=== PATIENT | female | born 1935 | race Caucasian/White ===

== ENCOUNTER 2018-09-09 11:39 | Inpatient (IN) | payer OTHER ==
[2018-09-09 11:54] VITALS: BMI 29.9
--- NOTE | 2018-09-09 12:24 | PDOC ---
History of Present Illness - General Chief Complaint: Lightheaded Stated Complaint: ABD PAIN Time Seen by Provider: 09/09/18 12:01 History Source: Patient Exam Limitations: No Limitations - History of Present Illness Initial Comments: 09/09/18 12:19 Patient is an 83F with history of HTN, DM (on januvia), and a "heart problem" ( patient is on aspirin and eliquis) here today with several complaints after a fall yesterday. Patient reports tripping over her cat, falling and hitting the back of her head against the oven in her kitchen. Denies LOC. This morning, patient vomited twice and had several episodes where she "blacked out" but did not lose consciousness. Denies shortness of breath, chest pain. Denies fevers, chills, nausea, vomiting. Denies abdominal pain, dysuria. Denies headache, neck pain. Past History - Past Medical History Allergies/Adverse Reactions: Allergies Allergy/AdvReac Type Severity Reaction Status Date / Time Penicillins Allergy Verified 09/09/18 11:48 Home Medications: Ambulatory Orders Apixaban [Eliquis] 5 mg PO DAILY 09/09/18 Aspirin 81 mg PO DAILY 09/09/18 Metoprolol Succinate 25 mg PO BID 09/09/18 Sitagliptin Phosphate [Januvia] 25 mg PO DAILY 09/09/18 Cardiac Disorders: Yes COPD: No Diabetes: Yes HTN: Yes Hypercholesterolemia: Yes - Surgical History Cholecystectomy: Yes - Suicide/Smoking/Psychosocial Hx Smoking History: Never smoked Review of Systems - Review of Systems Able to Perform ROS?: Yes Comments:: 09/09/18 12:26 GENERAL/CONSTITUTIONAL: No fever or chills. No weakness. HEAD, EYES, EARS, NOSE AND THROAT: No change in vision. No sore throat. CARDIOVASCULAR: No chest pain or shortness of breath RESPIRATORY: No cough, wheezing, or hemoptysis. GASTROINTESTINAL: +nausea, +vomiting, no diarrhea or constipation. GENITOURINARY: No dysuria, frequency, or change in urination. MUSCULOSKELETAL: No joint or muscle swelling or pain. No neck or back pain. SKIN: No rash NEUROLOGIC: No headache, vertigo, loss of consciousness, or change in strength/ sensation. ENDOCRINE: No increased thirst. No abnormal weight change HEMATOLOGIC/LYMPHATIC: No anemia, easy bleeding, or history of blood clots. ALLERGIC/IMMUNOLOGIC: No hives or skin allergy. *Physical Exam - Vital Signs Last Vital Signs Temp Pulse Resp BP Pulse Ox 97.2 F L 73 18 177/83 H 96 09/09/18 11:49 09/09/18 11:49 09/09/18 11:49 09/09/18 11:49 09/09/18 11:49 - Physical Exam Comments: 09/09/18 12:27 GENERAL: Awake, alert, and fully oriented, in no acute distress HEAD: No signs of trauma, normocephalic, atraumatic EYES: PERRLA, EOMI, sclera anicteric, conjunctiva clear ENT: Auricles normal inspection, hearing grossly normal, nares patent, oropharynx clear without exudates. Moist mucosa NECK: Normal ROM, supple, no lymphadenopathy, JVD, or masses, no midline tenderness LUNGS: No distress, speaks full sentences, clear to auscultation bilaterally HEART: Regular rate and rhythm, normal S1 and S2, no murmurs, rubs or gallops, peripheral pulses normal and equal bilaterally. ABDOMEN: Soft, nontender, normoactive bowel sounds. No guarding, no rebound. No masses EXTREMITIES: Minor abrasions on L ankle, bruise on left elbow, Normal range of motion, no edema. No clubbing or cyanosis. NEUROLOGICAL: Cranial nerves II through XII grossly intact. Normal speech, normal gait, no focal sensorimotor deficits SKIN: Warm, Dry, normal turgor, no rashes or lesions noted. Moderate Sedation - Procedure Monitoring Vital Signs: Procedure Monitoring Vital Signs Temperature 97.2 F L 09/09/18 11:49 Pulse Rate 73 09/09/18 11:49 Respiratory Rate 18 09/09/18 11:49 Blood Pressure 177/83 H 09/09/18 11:49 O2 Sat by Pulse Oximetry (%) 96 09/09/18 11:49 ED Treatment Course - LABORATORY CBC & Chemistry Diagram: 09/09/18 12:25 09/09/18 14:45 - RADIOLOGY Radiology Studies Ordered: Category Date Time Status HEAD CT WITHOUT CONTRAST [CT] Stat CT Scan 09/09/18 12:13 Ordered CHEST X-RAY PORTABLE* [RAD] Stat Radiology 09/09/18 12:13 Ordered Medical Decision Making - Medical Decision Making 09/09/18 12:28 Patient is 83F with history of HTN, DM, on eliquis and aspirin here today with head trauma, fall, near syncope. Vitals stable. DDx includes, but is not limited to: SAH, epidural, subdural, concussion, arrhythmia, acs. Will evaluate with cardiac workup, head ct. NEXUS clears neck. No other trauma requiring work up at this time. 09/09/18 12:31 EKG shows afib with rate of 80. No st elevations/depressions. Normal axis. Normal QRS, QTc intervals. No significant t wave abnormalities. 09/09/18 14:28 Disposition delayed due to hemolyzed blood samples x2. 09/09/18 15:58 CMP reassuring, trop neg. Will observe for near synocpe and head trauma concerning for concussion with patient on eliquis. *DC/Admit/Observation/Transfer Diagnosis at time of Disposition: Near syncope - Discharge Dispostion Condition at time of disposition: Stable Decision to Admit order: Yes - Referrals Referrals: Tate Kong MD [Primary Care Provider] - - Patient Instructions - Post Discharge Activity
[2018-09-09 12:46] LABS: BASO % 0.4 % (0-2.0); EOS % 0.9 % (0-4.5); HEMATOCRIT 40.6 % (32.4-45.2); HEMOGLOBIN 13.2 GM/dL (10.7-15.3); LYMPH % 11.5 % (8-40); MCH 28.2 pg (25.7-33.7); MCHC 32.6 g/dl (32.0-36.0); MEAN CELL VOLUME 86.4 fl (80-96); MEAN PLT VOLUME 9.6 fl (7.5-11.1); MONO % 4.9 % (3.8-10.2); NEUT % 82.3 % (42.8-82.8); PLATELET COUNT 183 K/MM3 (134-434); RDW 15.8 % (11.6-15.6); WHITE BLOOD COUNT 11.8 K/mm3 (4.0-10.0)
[2018-09-09] MEDS ORDERED: ONDANSETRON 4 MG/2 ML VIAL IVPUSH ONE (12:51)
--- NOTE | 2018-09-09 12:54 | PDOC ---
Attending Attestation - Resident Resident Name: ShankarnathanBrown - ED Attending Attestation I have performed the following: I have examined & evaluated the patient, The case was reviewed & discussed with the resident, I agree w/resident's findings & plan, Exceptions are as noted - HPI HPI: 09/09/18 12:54 The patient is an 83 year old female, with a significant PMH of HTN, DM (on ia), afib on eliquis, who presents to the emergency department s/p fall last night after tripping over her cat. Patient states she hit the back of her head and denies LOC at that time. However, today pt reports several episodes of vomiting associated with +LOC. Denies any additional falls. The patient denies chest pain, shortness of breath, headache and dizziness. Denies fever, chills, nausea, diarrhea and constipation. Denies dysuria, frequency, urgency and hematuria. Allergies: penicillin Social history: None reported PCP: Dr. Tate Kong - Physicial Exam PE: 09/09/18 13:04 "GENERAL: Awake, alert, and fully oriented, in no acute distress. HEAD: No signs of trauma EYES: PERRLA, EOMI, sclera anicteric, conjunctiva clear ENT: Auricles normal inspection, hearing grossly normal, nares patent, oropharynx clear without exudates. Moist mucosa NECK: Nontender, no stepoffs, Normal ROM, supple, no lymphadenopathy, JVD, or masses LUNGS: Breath sounds equal, clear to auscultation bilaterally. No wheezes, and no crackles HEART: Regular rate and rhythm, normal S1 and S2, no murmurs, rubs or gallops ABDOMEN: Soft, nontender, normoactive bowel sounds. No guarding, no rebound. No masses EXTREMITIES: Normal range of motion, no edema. No clubbing or cyanosis. No cords, erythema, or tenderness NEUROLOGICAL: Cranial nerves II through XII intact. 5/5 strength and sensation in all extremities, Normal speech, normal gait, normal cerebellar function SKIN: Warm, Dry, normal turgor, no rashes or lesions noted. - Medical Decision Making 09/09/18 13:05 83 F with fall yesterday, now with vomiting and multiple episodes of syncope today. Will need to r/o ICH. EKG with rate-controlled afib. - Labs, trop - CT head - Admit tele <Kunal Roman - Last Filed: 09/09/18 12:48> Attestations - Attestations 09/09/18 13:26 Documentation prepared by Senait Her, acting as medical device engineer for Kunal Roman MD. <Senait Her - Last Filed: 09/09/18 13:26>
[2018-09-09 13:08] LABS: INR 1.64 (0.83-1.09); PROTHROMBIN TIME (PATIENT) 19.4 SEC (9.7-13.0)
[2018-09-09] MEDS ORDERED: ONDANSETRON 4 MG/2 ML VIAL ONE (13:16)
[2018-09-09] MEDS ORDERED: MECLIZINE HCL 25 MG TABLET (FP) PO ONE (14:53)
[2018-09-09] MEDS ORDERED: MECLIZINE HCL 25 MG TABLET (FP) ONE (15:11)
[2018-09-09 15:42] LABS: ALBUMIN 3.4 g/dl (3.4-5.0); ALK PHOS 68 U/L (45-117); ANION GAP 3 MMOL/L (8-16); BILIRUBIN,TOTAL 0.3 mg/dL (0.2-1); BLOOD UREA NITROGEN 23 mg/dL (7-18); CALCIUM 9.1 mg/dL (8.5-10.1); CHLORIDE 106 mmol/L (98-107); CO2 29 mmol/L (21-32); CREATININE 1.1 mg/dL (0.55-1.3); GLUCOSE,RANDOM 143 mg/dL (74-106); MAGNESIUM 2.3 mg/dL (1.8-2.4); POTASSIUM 5.3 mmol/L (3.5-5.1); SGOT/AST 8 U/L (15-37); SGPT/ALT 16 U/L (13-61); SODIUM 138 mmol/L (136-145); TOT PROT 7.2 g/dl (6.4-8.2)
[2018-09-09 17:14] LABS: URINE APPEARANCE SLCLOUDY; URINE BILIRUBIN NEGATIVE (<2.0 mg/dL); URINE COLOR YELLOW; URINE GLUCOSE (UA) NEGATIVE (NEGATIVE); URINE KETONE NEGATIVE (NEGATIVE); URINE LEUK ESTERASE NEGATIVE (NEGATIVE); URINE NITRITE POSITIVE (NEGATIVE); URINE PROTEIN 1+ (NEGATIVE); URINE UROBILINOGEN NEGATIVE mg/dL (0.2-1.0)
[2018-09-09 17:22] LABS: EPI CELLS RARE /HPF (FEW); URINE BACTERIA RARE /hpf (NONE SEEN); URINE MUCUS RARE
[2018-09-09] MEDS ORDERED: SODIUM POLYSTYRENE SULFONATE 15 GM/60 ML BOTTLE PO ONE (22:45)
[2018-09-09] MEDS ORDERED: PHYTONADIONE 5 MG TABLET PO ONE (22:45)
[2018-09-10] MEDS ORDERED: PHYTONADIONE 5 MG TABLET ONE (00:35)
[2018-09-10] MEDS ORDERED: SODIUM POLYSTYRENE SULFONATE 15 GM/60 ML BOTTLE ONE (00:36)
[2018-09-10 06:08] LABS: BASO % 0.7 % (0-2.0); EOS % 1.5 % (0-4.5); HEMATOCRIT 37.5 % (32.4-45.2); HEMOGLOBIN 12.4 GM/dL (10.7-15.3); LYMPH % 28.7 % (8-40); MCH 28.4 pg (25.7-33.7); MCHC 33.1 g/dl (32.0-36.0); MEAN CELL VOLUME 85.7 fl (80-96); MEAN PLT VOLUME 9.3 fl (7.5-11.1); MONO % 9.6 % (3.8-10.2); NEUT % 59.5 % (42.8-82.8); PLATELET COUNT 177 K/MM3 (134-434); RBC 4.37 M/mm3 (3.60-5.2); RDW 16.4 % (11.6-15.6); WHITE BLOOD COUNT 7.1 K/mm3 (4.0-10.0)
[2018-09-10 06:30] LABS: ALBUMIN 2.8 g/dl (3.4-5.0); ALK PHOS 62 U/L (45-117); ANION GAP 6 MMOL/L (8-16); BILIRUBIN,TOTAL 0.2 mg/dL (0.2-1); BLOOD UREA NITROGEN 27 mg/dL (7-18); CALCIUM 8.4 mg/dL (8.5-10.1); CHLORIDE 108 mmol/L (98-107); CO2 26 mmol/L (21-32); CREATININE 1.3 mg/dL (0.55-1.3); GLUCOSE,RANDOM 104 mg/dL (74-106); POTASSIUM 4.6 mmol/L (3.5-5.1); SGOT/AST 8 U/L (15-37); SGPT/ALT 15 U/L (13-61); SODIUM 140 mmol/L (136-145); TOT PROT 6.2 g/dl (6.4-8.2)
[2018-09-10] MEDS ORDERED: sitaGLIPtin PHOSPHATE 50 MG TABLET ONE (07:37)
[2018-09-10] MEDS: sitaGLIPtin PHOSPHATE 50 MG TABLET PO SCH (07:38)
--- NOTE | 2018-09-10 09:58 | CON.CARD ---
Consult Consult Specialty:: Cardiology Referred by:: Chrissie Kong Reason for Consultation:: syncope - History of Present Illness Chief Complaint: fall History of Present Illness: The patient is an 83 year old female, with a history of HTN, NIDDM, chronic afib on eliquis, who came to the hospital s/p fall after tripping over her cat. Patient states she hit the back of her head and denies LOC at that time. However , she then had several episodes of vomiting associated with +LOC. Denies any additional falls. No chest pain, palpitations, orthopnea, pnd or edema. She reports postural lightheadedness. - History Source History Provided By: Patient, Medical Record - Smoking History Smoking history: Never smoked Home Medications - Allergies Allergies/Adverse Reactions: Allergies Allergy/AdvReac Type Severity Reaction Status Date / Time Penicillins Allergy Verified 09/09/18 11:48 - Home Medications Home Medications: Ambulatory Orders Apixaban [Eliquis] 5 mg PO DAILY 09/09/18 Aspirin 81 mg PO DAILY 09/09/18 Metoprolol Succinate 25 mg PO BID 09/09/18 Sitagliptin Phosphate [Januvia] 25 mg PO DAILY 09/09/18 Vital Signs: Vital Signs Temperature 98.6 F 09/10/18 06:33 Pulse Rate 90 09/10/18 06:33 Respiratory Rate 18 09/10/18 02:39 Blood Pressure 114/60 09/10/18 06:33 O2 Sat by Pulse Oximetry (%) 92 L 09/10/18 06:33 Constitutional: Yes: No Distress, Calm Eyes: Yes: Conjunctiva Clear, EOM Intact HENT: Yes: Atraumatic, Normocephalic Neck: Yes: Supple, Trachea Midline Respiratory: Yes: CTA Bilaterally Gastrointestinal: Yes: Normal Bowel Sounds, Soft Renal/: Yes: WNL Cardiovascular: Yes: Pulse Irregular JVD: No Carotid Bruit: No PMI: Non-Displaced Heart Sounds: Yes: S1, S2 Musculoskeletal: Yes: WNL Extremities: Yes: WNL Edema: No Peripheral Pulses WNL: Yes - Other Data Labs, Other Data: CBC, BMP 09/10/18 05:30 09/10/18 06:00 INR, PTT INR 1.64 (0.83-1.09) H 09/09/18 12:25 Troponin, BNP 09/09/18 09/09/18 09/09/18 12:25 13:42 14:45 Troponin I Cancelled Cancelled < 0.02 09/10/18 06:00 Troponin I < 0.02 Troponin, BNP 09/09/18 09/09/18 09/09/18 12:25 13:42 14:45 Troponin I Cancelled Cancelled < 0.02 09/10/18 06:00 Troponin I < 0.02 Imaging - Results Chest X-ray: Report Reviewed Cat Scan: Report Reviewed EKG: Report Reviewed (af controlled vr) Assessment/Plan The patient is an 83 year old female, with a history of HTN, NIDDM, chronic afib on eliquis, who came to the hospital s/p fall after tripping over her cat. Patient states she hit the back of her head and denies LOC at that time. However , she then had several episodes of vomiting associated with +LOC. Denies any additional falls. No chest pain, palpitations, orthopnea, pnd or edema. She reports postural lightheadedness. Syncope -unclear mechanism of the event, doubt ACS or arrhythmia. -no need for telemetry -Echo -check orthostatic blood pressures. Atrial fibrillation -continue eliquis 5 mg bid -continue metoprolol for rate control.
[2018-09-10] MEDS ORDERED: ASPIRIN COATED 81 MG TABLET.EC PO SCH (10:00)
[2018-09-10] MEDS ORDERED: APIXABAN 5 MG TABLET PO ONE (10:07)
[2018-09-10] MEDS ORDERED: ASPIRIN 81 MG CHEWABLE TABLETS ONE (10:07)
[2018-09-10] MEDS ORDERED: METOPROLOL TARTRATE 25 MG TABLET (FP) ONE (10:07)
[2018-09-10] MEDS: METOPROLOL TARTRATE 25 MG TABLET (FP) PO SCH ×2 (10:21→21:42)
[2018-09-10] MEDS: APIXABAN 5 MG TABLET PO SCH ×2 (10:21→21:42)
--- NOTE | 2018-09-10 10:44 | EKG ---
Test Reason : Blood Pressure : / mmHG Vent. Rate : 080 BPM Atrial Rate : 098 BPM P-R Int : 000 ms QRS Dur : 074 ms QT Int : 376 ms P-R-T Axes : 000 049 063 degrees QTc Int : 433 ms ATRIAL FIBRILLATION ABNORMAL ECG NO PREVIOUS ECGS AVAILABLE Confirmed by Adarsh Potts MD ([id number]) on 09/10/2018 10:43:36 AM Referred By: Confirmed By:Adarsh Potts MD
--- NOTE | 2018-09-10 10:47 | HP ---
Admitting History and Physical - Admission Chief Complaint: pt tripped off table sunday night hit headgot up and 1day later cooper dizzy. and n/v x 1. still feeling dizzy mariano when getsvup. denies any other complaints History Source: Patient Limitations to Obtaining History: Other (dcreaseslght memory) - Past Medical History CINDER [place]: Yes: Syncope Cardiovascular: Yes: AFIB Pulmonary: Yes: Bronchitis, Pneumonia ...: No - Smoking History Smoking history: Never smoked - Alcohol/Substance Use History of Substance Use: reports: None - Social History Usual Living Arrangement: Yes: Alone History of Recent Travel: No Home Medications - Allergies Allergies/Adverse Reactions: Allergies Allergy/AdvReac Type Severity Reaction Status Date / Time Penicillins Allergy Verified 09/09/18 11:48 - Home Medications Home Medications: Ambulatory Orders Apixaban [Eliquis] 5 mg PO DAILY 09/09/18 Aspirin 81 mg PO DAILY 09/09/18 Metoprolol Succinate 25 mg PO BID 09/09/18 Sitagliptin Phosphate [Januvia] 25 mg PO DAILY 09/09/18 Family Disease History - Family Disease History Family History: Unremarkable Review of Systems - Review of Systems Cardiovascular: reports: Palpitations Neurological: reports: Dizziness Physical Examination Vital Signs: Vital Signs Temperature 97.6 F 09/10/18 10:21 Pulse Rate 105 H 09/10/18 10:21 Respiratory Rate 18 09/10/18 10:21 Blood Pressure 130/59 L 09/10/18 10:21 O2 Sat by Pulse Oximetry (%) 96 09/10/18 10:21 Constitutional: Yes: Well Nourished, Obese Eyes: Yes: Other HENT: Yes: Thrush Cardiovascular: Yes: Pulse Irregular Respiratory: Yes: SOB on Exertion Gastrointestinal: Yes: WNL ...Rectal Exam: Yes: Deferred Renal/: Yes: WNL Breast(s): Yes: WNL Musculoskeletal: Yes: Back Pain Extremities: Yes: WNL Edema: No Peripheral Pulses WNL: Yes Peripheral Pulses: Left Radial: 2+, Right Radial: 2+, Left Doralis Pedis: 2+, Right Dorsalis Pedis: 2+, Left Femoral: 2+, Right Femoral: 2+ Integumentary: Yes: WNL Neurological: Yes: WNL, Alert ...Motor Strength: WNL Psychiatric: Yes: WNL Labs: CBC, BMP 09/10/18 05:30 09/10/18 06:00 Problem List - Problems (1) Pneumonia Code(s): J18.9 - PNEUMONIA, UNSPECIFIED ORGANISM (2) UTI (urinary tract infection) Code(s): N39.0 - URINARY TRACT INFECTION, SITE NOT SPECIFIED (3) Diabetes Code(s): E11.9 - TYPE 2 DIABETES MELLITUS WITHOUT COMPLICATIONS (4) Hypertension Code(s): I10 - ESSENTIAL (PRIMARY) HYPERTENSION Assessment/Plan antibiotics to cover uti and ? infiltate card neuro asp seizprecautions ? mri out pt ? d/c asa if ok w caRD TX HIGH K TX HIGH INR? CONT TX IS
[2018-09-10 12:01] LABS: INR 1.59 (0.83-1.09); PROTHROMBIN TIME (PATIENT) 18.8 SEC (9.7-13.0)
--- NOTE | 2018-09-10 13:32 | ECHO ---
Name: KAMLA WRIGHT Exam:Adult Echocardiogram Study Date: 09/10/2018 11:35 AM Age: 83 yrs Reason For Study: SYNCOPE Height: 62 in Weight: 164 lb BSA: 1.8 m2 MMode/2D Measurements & Calculations IVSd: 1.0 cm Ao root diam: 2.6 cm LVIDd: 4.4 cm LA dimension: 3.3 cm LVIDs: 2.6 cm LVPWd: 0.90 cm EDV(Teich): 87.0 ml LVOT diam: 1.9 cm ESV(Teich): 23.6 ml Doppler Measurements & Calculations MV E max dre: 80.5 cm/sec Ao V2 max: 130.3 cm/sec MV dec time: 0.15 sec Ao max P.8 mmHg AI P1/2t: 655.6 msec HERNAN(V,D): 1.6 cm2 AI max dre: 461.1 cm/sec LV V1 max P.1 mmHg AI max P.1 mmHg LV V1 max: 72.6 cm/sec AI dec slope: 206.0 cm/sec2 MR max dre: 445.0 cm/sec TR max dre: 264.3 cm/sec MR max P.3 mmHg TR max P.2 mmHg PA V2 max: 80.1 cm/sec PI end-d dre: 150.2 cm/sec PA max P.6 mmHg Med Peak E' Dre: 5.8 cm/sec Med E/e': 13.8 Lat Peak E' Dre: 9.6 cm/sec Lat E/e': 8.4 Left Ventricle The left ventricle is normal in size. There is normal left ventricular wall thickness. Ejection Fract ion = 50%. The transmitral spectral Doppler flow pattern is suggestive of impaired LV relaxation. There is septal wall mild hypokinesis. Right Ventricle The right ventricle is normal in size and function. Atria Normal left and right atrial size and function. Mitral Valve There is mild mitral valve thickening. There is mild mitral regurgitation. Tricuspid Valve The tricuspid valve is normal in structure and function. There is mild to moderate tricuspid regurgit ation. Right ventricular systolic pressure is 32 mmhg. Aortic Valve There is mild aortic valve thickening. Mild aortic regurgitation. Pulmonic Valve The pulmonic valve is normal in structure and function. Trace to mild pulmonic valvular regurgitation . Great Vessels The aortic root is normal size. Pericardium/Pleura There is no pericardial effusion. There is no pleural effusion. Interpretation Summary The left ventricle is normal in size. There is septal wall mild hypokinesis. Ejection Fraction = 50%. Normal left and right atrial size and function. There is mild mitral valve thickening. There is mild mitral regurgitation. There is mild to moderate tricuspid regurgitation. Right ventricular systolic pressure is 32 mmhg. There is mild aortic valve thickening. Mild aortic regurgitation. Trace to mild pulmonic valvular regurgitation. MD Adarsh Potts 09/10/2018 01:32 PM
--- NOTE | 2018-09-10 14:38 | EKG ---
Test Reason : Blood Pressure : / mmHG Vent. Rate : 095 BPM Atrial Rate : 300 BPM P-R Int : 000 ms QRS Dur : 070 ms QT Int : 352 ms P-R-T Axes : 000 030 043 degrees QTc Int : 442 ms ATRIAL FIBRILLATION ABNORMAL ECG WHEN COMPARED WITH ECG OF 09-SEP-2018 11:43, NO SIGNIFICANT CHANGE WAS FOUND Confirmed by Adarsh Potts MD ([id number]) on 09/10/2018 2:37:46 PM Referred By: Chrissie BERG Confirmed By:Adarsh Potts MD
--- NOTE | 2018-09-10 15:20 | CONSULT ---
Consult - text type - Consultation Consultation Note: NEUROLOGY CONSULT APPRECIATED: Events reviewed and discussed with staff and Dr. Nallely Kong. Daughter and son at bedside, aiding in translation. This 83 yo RH female lives alone with pmhx HTN, Afib, DM x 8 years, maintained on ASA, metoprolol, apixaban and sitagliptan. She reports approximately 2 years of progressive gait dysfunction, requiring use of cane outside the house. She describes a feeling of "imbalance" and tendency to be propelled backwards. Yesterday, while standing at the kitchen stove, she tripped over her cat and fell backwards into the fridge. She denies head trauma, JUAN PABLO or LOC. She was able to grab the sink and get herself up to standing position, but felt "weak" in the knees and "dizzy." Review of systems significant for remote history of migraines. Sleep remains poor due to nocturnal "cramps" in the legs that improve with walking. Family note some more recent memory changes. Head Ct (reviewed): mod atrophy, scattered microvascular changes, densely calcified arteries NAILA: Cor irregularly irregular. No bruit. Neck supple. No evidence of head trauma. NEURO: Mentation/Speech: Ox [facility]. August,. TRUMP. Poor reversals. 1/3 recall at three. CNII-CNXII: EOM intact and full flores appreciated. Gag ok. No facial. + glabella Motor: Intermittent jaw tremor. No drift. + Cogwheeling with reinforcement R >>> L. Reduced AILIN's B/L. Toes downgoing. Coordination: No FTN dystaxia. Sensation: Decreased vibration in toes. Gait: Flexed, shuffling. Retropulsive. Difficulty with turns. Impression: 1. Mild B/L Cerebral Dysfunction (OMS, possibly on a microvascular basis.) 2. Extrapyramidal features suggestive of Parkinsonism, Possibly Parkinson's disease 3. Peripheral Neuropathy (c/w diabetes) Suggest: Orthostatic BP's Order B12, RPR, TSH, Iron studies MRI of brain (C-) Carotid duplex doppler Agree with cardio and telemetry, may benefit from addition of statin therapy Trial Sinemet 25/100 0.5 tab po with meals TID x 1 week, then increase to 1 tab po TID PT with walker for gait training Neuro f/u as out patient for Rx of PD and Eval of Neuropathy. Thank you very much, Eduard Vargas MD
[2018-09-10] MEDS ORDERED: PHYTONADIONE 10 MG/1 ML AMP IM ONE (16:00)
[2018-09-11] MEDS: sitaGLIPtin PHOSPHATE 50 MG TABLET PO SCH (06:18)
[2018-09-11 07:17] LABS: BASO % 0.5 % (0-2.0); HEMATOCRIT 38.4 % (32.4-45.2); HEMOGLOBIN 12.6 GM/dL (10.7-15.3); LYMPH % 28.3 % (8-40); MCH 28.1 pg (25.7-33.7); MCHC 32.7 g/dl (32.0-36.0); MEAN CELL VOLUME 85.9 fl (80-96); MEAN PLT VOLUME 9.5 fl (7.5-11.1); MONO % 9.1 % (3.8-10.2); NEUT % 60.1 % (42.8-82.8); PLATELET COUNT 180 K/MM3 (134-434); RBC 4.48 M/mm3 (3.60-5.2); RDW 16.2 % (11.6-15.6); WHITE BLOOD COUNT 8.2 K/mm3 (4.0-10.0)
[2018-09-11 07:20] LABS: INR 1.41 (0.83-1.09); PROTHROMBIN TIME (PATIENT) 16.7 SEC (9.7-13.0)
[2018-09-11 08:03] LABS: ANION GAP 2 MMOL/L (8-16); BLOOD UREA NITROGEN 29 mg/dL (7-18); CALCIUM 8.5 mg/dL (8.5-10.1); CHLORIDE 109 mmol/L (98-107); CO2 28 mmol/L (21-32); CREATININE 1.2 mg/dL (0.55-1.3); GLUCOSE,RANDOM 135 mg/dL (74-106); POTASSIUM 4.8 mmol/L (3.5-5.1); SODIUM 139 mmol/L (136-145)
[2018-09-11] MEDS: APIXABAN 5 MG TABLET PO SCH ×2 (10:41→22:24)
[2018-09-11] MEDS: METOPROLOL TARTRATE 25 MG TABLET (FP) PO SCH ×2 (10:41→22:24)
[2018-09-11] MEDS ORDERED: MECLIZINE HCL 12.5 MG TABLET PO PRN (13:12)
--- NOTE | 2018-09-11 13:12 | PN ---
Progress Note, Physician Chief Complaint: complains of dizziness when walking ? vertigo vs early parkinsaonism - Current Medication List Current Medications: Active Medications Apixaban (Eliquis -) 5 mg PO BID [facility] Last Admin: 09/11/18 10:41 Dose: 5 mg Carbidopa/Levodopa (Sinemet *Cr* 25/100 -) 1 combo PO TID MYRANDA Carbidopa/Levodopa (Sinemet *Cr* 25/100 -) 0.5 combo PO TID [facility] Stop: 09/17/18 22:01 Last Admin: 09/11/18 06:19 Dose: 0.5 combo Metoprolol Tartrate (Lopressor -) 25 mg PO BID [facility] Last Admin: 09/11/18 10:41 Dose: 25 mg Sitagliptin Phosphate (Januvia -) 50 mg PO DAILY@0700 [facility] Last Admin: 09/11/18 06:18 Dose: 50 mg - Objective Vital Signs: Vital Signs Temperature 98 F 09/11/18 10:37 Pulse Rate 89 09/11/18 10:37 Respiratory Rate 20 09/11/18 10:37 Blood Pressure 115/63 09/11/18 10:37 O2 Sat by Pulse Oximetry (%) 98 09/11/18 01:46 Constitutional: Yes: Well Nourished Eyes: Yes: WNL HENT: Yes: WNL Neck: Yes: WNL Cardiovascular: Yes: WNL Respiratory: Yes: WNL Gastrointestinal: Yes: WNL ...Rectal Exam: Yes: Deferred Genitourinary: Yes: WNL Breast(s): Yes: WNL Musculoskeletal: Yes: Other (cogwheel nrigitidy?) Edema: No Peripheral Pulses WNL: Yes Peripheral Pulses: Left Radial: 2+, Right Radial: 2+, Left Doralis Pedis: 2+, Right Dorsalis Pedis: 2+, Left Femoral: 2+, Right Femoral: 2+ Integumentary: Yes: WNL Neurological: Yes: Ataxia, Weakness ...Motor Strength: WNL Psychiatric: Yes: WNL Labs: CBC, BMP 09/11/18 06:10 09/11/18 06:10 INR, PTT INR 1.41 (0.83-1.09) H 09/11/18 06:10 Problem List - Problems (1) Pneumonia Code(s): J18.9 - PNEUMONIA, UNSPECIFIED ORGANISM (2) UTI (urinary tract infection) Code(s): N39.0 - URINARY TRACT INFECTION, SITE NOT SPECIFIED (3) Diabetes Code(s): E11.9 - TYPE 2 DIABETES MELLITUS WITHOUT COMPLICATIONS (4) Hypertension Code(s): I10 - ESSENTIAL (PRIMARY) HYPERTENSION Assessment/Plan add antivert pt eval ? d/c to [facility] spoke to her giselle hoskins im cxr cipro perypheral neurapath will stop it
[2018-09-11] MEDS ORDERED: PHYTONADIONE 5 MG TABLET PO ONE (14:00)
--- NOTE | 2018-09-11 15:39 | PN ---
Progress Note (short form) - Note Progress Note: s: no cp sob palps dizzy; +nausea o: Vital Signs Period Temp Pulse Resp BP Sys/Starr Pulse Ox Last 24 Hr 97.4 F-98.4 F 76-91 18-20 115-137/55-78 98 nad no jvd irreg s1s2 no mrg cta bl nl eff aaox3 no le e/c/c abd nt nd pos bs no le e/c/c no jaundice diaphoresis Current Medications Generic Name Dose Route Start Last Admin Trade Name Freq PRN Reason Stop Dose Admin Apixaban 5 mg 09/10/18 10:00 09/11/18 10:41 Eliquis - PO 5 mg BID MYRANDA Administration Carbidopa/Levodopa 1 combo 09/18/18 06:00 Sinemet *Cr* 25/100 - PO TID MYRANDA Carbidopa/Levodopa 0.5 combo 09/11/18 06:00 09/11/18 06:19 Sinemet *Cr* 25/100 - PO 09/17/18 22:01 0.5 combo TID MYRANDA Administration Meclizine HCl 12.5 mg 09/11/18 13:12 Antivert - PO Q8H PRN VERTIGO Metoprolol Tartrate 25 mg 09/10/18 10:00 09/11/18 10:41 Lopressor - PO 25 mg BID MYRANDA Administration Sitagliptin Phosphate 50 mg 09/10/18 07:00 09/11/18 06:18 Januvia - PO 50 mg DAILY@0700 MYRANDA Administration CBC, BMP 09/11/18 06:10 09/11/18 06:10 echo 08/2018: septal wall hk, lvef 50, nl rv, mild mr, mild-mod tr, nl rvsp, mild ar carotids 08/2018: no sig stenosis a/p:83 f hx htn, dm , afib, cad s/p pci 2006, hld here s/p fall. fall: -mechanical fall, no suggestion of cardiac etiology htn: -cont bb afib: -cont bb, rate controlled -cont ac cad s/p remote pci: -stable, no anginal sxs, preserved lvef -cont ac, bb. hld: -on crestor 20 at home.
[2018-09-11] MEDS ORDERED: PT OWN MED DRAWER 7, Y5N ONE (17:11)
--- NOTE | 2018-09-11 19:16 | PN ---
Progress Note (short form) - Note Progress Note: NEUROLOGY PROGRESS; Events reviewed. Patient examined. Pt. reports horizontal vertigo on head turning to the left with nausea. Pt has had similar episodes in the past. On meclizine TID. Still with masked facies. Full EOM's without nystagmus Still with cogwheel rigidity and decreased AILIN's. IMP: Early Parkinsons Labyrinthitis. SUGGEST: Continue L-Dopa and mecliziane Mobilize Pt. OO Bed to chair. Check orthostatic BP's PT for gait with walker. Thank you very much, Eduard Vargas MD
[2018-09-11] MEDS: MECLIZINE HCL 12.5 MG TABLET PO SCH (22:24)
[2018-09-12 04:15] LABS: SERUM IRON SATURATION 17 % (15-55); TOTAL IRON BINDING CAPACITY 269 ug/dL (250-450); UIBC 223 ug/dL (118-369)
[2018-09-12] MEDS: MECLIZINE HCL 12.5 MG TABLET PO SCH ×3 (06:48→22:00)
[2018-09-12] MEDS: sitaGLIPtin PHOSPHATE 50 MG TABLET PO SCH (06:48)
[2018-09-12 09:30] LABS: BASO % 0.5 % (0-2.0); EOS % 1.8 % (0-4.5); HEMATOCRIT 41.1 % (32.4-45.2); HEMOGLOBIN 13.3 GM/dL (10.7-15.3); LYMPH % 20.1 % (8-40); MCH 27.9 pg (25.7-33.7); MCHC 32.4 g/dl (32.0-36.0); MEAN CELL VOLUME 86.1 fl (80-96); MEAN PLT VOLUME 9.7 fl (7.5-11.1); MONO % 6.8 % (3.8-10.2); NEUT % 70.8 % (42.8-82.8); PLATELET COUNT 188 K/MM3 (134-434); RBC 4.77 M/mm3 (3.60-5.2); RDW 16.2 % (11.6-15.6); WHITE BLOOD COUNT 10.3 K/mm3 (4.0-10.0)
[2018-09-12 09:43] LABS: INR 1.28 (0.83-1.09); PROTHROMBIN TIME (PATIENT) 15.1 SEC (9.7-13.0)
[2018-09-12] MEDS: APIXABAN 5 MG TABLET PO SCH ×2 (10:23→22:00)
[2018-09-12] MEDS: METOPROLOL TARTRATE 25 MG TABLET (FP) PO SCH ×2 (10:23→22:00)
--- NOTE | 2018-09-12 10:51 | PN ---
Progress Note (short form) - Note Progress Note: s: no cp sob palps dizzy o: Vital Signs Period Temp Pulse Resp BP Sys/Starr Pulse Ox Last 24 Hr 97.5 F-98.4 F 70-87 18-20 118-139/68-79 98-98 nad no jvd irreg s1s2 no mrg cta bl nl eff aaox3 no le e/c/c abd nt nd pos bs no le e/c/c no jaundice diaphoresis Current Medications Generic Name Dose Route Start Last Admin Trade Name Frerenny PRN Reason Stop Dose Admin Apixaban 5 mg 09/10/18 10:00 09/12/18 10:23 Eliquis - PO 5 mg BID MYRANDA Administration Carbidopa/Levodopa 1 combo 09/18/18 06:00 Sinemet *Cr* 25/100 - PO TID MYRANDA Carbidopa/Levodopa 0.5 combo 09/11/18 06:00 09/12/18 06:48 Sinemet *Cr* 25/100 - PO 09/17/18 22:01 0.5 combo TID MYRANDA Administration Meclizine HCl 12.5 mg 09/11/18 22:00 09/12/18 06:48 Antivert - PO 12.5 mg TID MYRANDA Administration Metoprolol Tartrate 25 mg 09/10/18 10:00 09/12/18 10:23 Lopressor - PO 25 mg BID MYRANDA Administration Sitagliptin Phosphate 50 mg 09/10/18 07:00 09/12/18 06:48 Januvia - PO 50 mg DAILY@0700 MYRANDA Administration CBC, BMP 09/12/18 08:25 echo 08/2018: septal wall hk, lvef 50, nl rv, mild mr, mild-mod tr, nl rvsp, mild ar carotids 08/2018: no sig stenosis a/p:83 f hx htn, dm , afib, cad s/p pci 2006, hld here s/p fall. fall: -mechanical fall, no suggestion of cardiac etiology htn: -cont bb afib: -cont bb, rate controlled -cont ac cad s/p remote pci: -stable, no anginal sxs, preserved lvef -cont ac, bb. hld: -on crestor 20 at home.
[2018-09-12 11:04] LABS: ANION GAP 5 MMOL/L (8-16); BLOOD UREA NITROGEN 22 mg/dL (7-18); CALCIUM 8.8 mg/dL (8.5-10.1); CHLORIDE 107 mmol/L (98-107); CO2 27 mmol/L (21-32); CREATININE 1.1 mg/dL (0.55-1.3); GLUCOSE,RANDOM 176 mg/dL (74-106); SODIUM 139 mmol/L (136-145)
[2018-09-12] MEDS ORDERED: PT OWN MED DRAWER 7, Y5N ONE (13:55)
[2018-09-12] MEDS: ACETAMINOPHEN 325 MG TABLET (FP) PO PRN ×2 (16:42→22:02)
[2018-09-13] MEDS: sitaGLIPtin PHOSPHATE 50 MG TABLET PO SCH (06:30)
[2018-09-13] MEDS: MECLIZINE HCL 12.5 MG TABLET PO SCH ×3 (06:30→22:57)
[2018-09-13] MEDS: METOPROLOL TARTRATE 25 MG TABLET (FP) PO SCH ×2 (10:23→22:57)
[2018-09-13] MEDS: APIXABAN 5 MG TABLET PO SCH ×2 (10:23→22:57)
--- NOTE | 2018-09-13 12:09 | PN ---
Progress Note (short form) - Note Progress Note: s: no cp sob palps; mild dizzy this AM o: Vital Signs Period Temp Pulse Resp BP Sys/Starr Pulse Ox Last 24 Hr 97.9 F-98.4 F 84-96 20-20 122-141/59-78 98 nad no jvd irreg s1s2 no mrg cta bl nl eff aaox3 no le e/c/c abd nt nd pos bs no le e/c/c no jaundice diaphoresis Current Medications Generic Name Dose Route Start Last Admin Trade Name Freq PRN Reason Stop Dose Admin Acetaminophen 650 mg 09/12/18 14:10 09/12/18 22:02 Tylenol - PO 650 mg Q4H PRN Administration PAIN Apixaban 5 mg 09/10/18 10:00 09/12/18 22:00 Eliquis - PO 5 mg BID MYRANDA Administration Carbidopa/Levodopa 1 combo 09/18/18 06:00 Sinemet *Cr* 25/100 - PO TID MYRANDA Carbidopa/Levodopa 0.5 combo 09/11/18 06:00 09/13/18 06:30 Sinemet *Cr* 25/100 - PO 09/17/18 22:01 0.5 combo TID MYRANDA Administration Insulin Detemir 10 units 09/13/18 22:00 Levemir Vial SQ HS MYRANDA Levofloxacin 250 mg 09/13/18 10:00 Levaquin - PO 09/15/18 10:01 DAILY MYRANDA Meclizine HCl 12.5 mg 09/11/18 22:00 09/13/18 06:30 Antivert - PO 12.5 mg TID MYRANDA Administration Metoprolol Tartrate 25 mg 09/10/18 10:00 09/12/18 22:00 Lopressor - PO 25 mg BID MYRANDA Administration Pantoprazole Sodium 20 mg 09/14/18 10:00 Protonix - PO DAILY MYRANDA Rosuvastatin Calcium 20 mg 09/13/18 22:00 Crestor - PO HS MYRANDA Sitagliptin Phosphate 50 mg 09/10/18 07:00 09/13/18 06:30 Januvia - PO 50 mg DAILY@0700 MYRANDA Administration CBC, BMP 09/12/18 08:25 09/12/18 08:25 echo 08/2018: septal wall hk, lvef 50, nl rv, mild mr, mild-mod tr, nl rvsp, mild ar carotids 08/2018: no sig stenosis a/p:83 f hx htn, dm , afib, cad s/p pci 2006, hld here s/p fall. fall: -mechanical fall, no suggestion of cardiac etiology -on meclizine for vertigo htn: -cont bb afib: -cont bb, rate controlled -cont ac cad s/p remote pci: -stable, no anginal sxs, preserved lvef -cont ac, bb. hld: -on crestor 20 at home.
--- NOTE | 2018-09-13 13:04 | PN ---
Progress Note, Physician Chief Complaint: c/o of lt knee pain swelling since last nigfht did a dry tap otho comuing in for cortizone shot xray pdn now will d/c her after ortho - Current Medication List Current Medications: Active Medications Acetaminophen (Tylenol -) 650 mg PO Q4H PRN PRN Reason: PAIN Last Admin: 09/12/18 22:02 Dose: 650 mg Apixaban (Eliquis -) 5 mg PO BID [facility] Last Admin: 09/12/18 22:00 Dose: 5 mg Carbidopa/Levodopa (Sinemet *Cr* 25/100 -) 1 combo PO TID [facility] Carbidopa/Levodopa (Sinemet *Cr* 25/100 -) 0.5 combo PO TID [facility] Stop: 09/17/18 22:01 Last Admin: 09/13/18 06:30 Dose: 0.5 combo Insulin Detemir (Levemir Vial) 10 units SQ [facility] Levofloxacin (Levaquin -) 250 mg PO DAILY [facility] Stop: 09/15/18 10:01 Meclizine HCl (Antivert -) 12.5 mg PO TID [facility] Last Admin: 09/13/18 06:30 Dose: 12.5 mg Metoprolol Tartrate (Lopressor -) 25 mg PO BID [facility] Last Admin: 09/12/18 22:00 Dose: 25 mg Pantoprazole Sodium (Protonix -) 20 mg PO DAILY [facility] Rosuvastatin Calcium (Crestor -) 20 mg PO HS [facility] Sitagliptin Phosphate (Januvia -) 50 mg PO DAILY@0700 [facility] Last Admin: 09/13/18 06:30 Dose: 50 mg - Objective Vital Signs: Vital Signs Temperature 98.4 F 09/13/18 06:00 Pulse Rate 96 H 09/13/18 06:00 Respiratory Rate 20 09/13/18 06:00 Blood Pressure 141/78 09/13/18 06:00 O2 Sat by Pulse Oximetry (%) 98 09/12/18 20:11 Labs: CBC, BMP 09/12/18 08:25 09/12/18 08:25 INR, PTT INR 1.28 (0.83-1.09) H 09/12/18 08:25 Problem List - Problems (1) Pneumonia Code(s): J18.9 - PNEUMONIA, UNSPECIFIED ORGANISM (2) UTI (urinary tract infection) Code(s): N39.0 - URINARY TRACT INFECTION, SITE NOT SPECIFIED (3) Diabetes Code(s): E11.9 - TYPE 2 DIABETES MELLITUS WITHOUT COMPLICATIONS (4) Hypertension Code(s): I10 - ESSENTIAL (PRIMARY) HYPERTENSION
--- NOTE | 2018-09-13 13:17 | DS ---
Physical Examination Vital Signs: Vital Signs Temperature 98.4 F 09/13/18 06:00 Pulse Rate 96 H 09/13/18 06:00 Respiratory Rate 20 09/13/18 06:00 Blood Pressure 141/78 09/13/18 06:00 O2 Sat by Pulse Oximetry (%) 98 09/12/18 20:11 Constitutional: Yes: Well Nourished Eyes: Yes: WNL HENT: Yes: WNL Neck: Yes: WNL Cardiovascular: Yes: WNL Respiratory: Yes: WNL Gastrointestinal: Yes: WNL ...Rectal Exam: Yes: Deferred Renal/: Yes: WNL Breast(s): Yes: WNL. No: Nipple Inversion Musculoskeletal: Yes: Other (lt knee pain and swelling) Extremities: Yes: Other (lt knee paibn) Edema: No Integumentary: Yes: WNL Neurological: Yes: WNL ...Motor Strength: WNL Psychiatric: Yes: WNL Labs: CBC, BMP 09/12/18 08:25 09/12/18 08:25 Discharge Summary Reason For Visit: PRE SYNCOPE Current Active Problems Diabetes (Acute) Hypertension (Acute) Near syncope (Acute) Pneumonia (Acute) UTI (urinary tract infection) (Acute) Condition: Fair - Instructions Disposition: [facility] - Home Medications Comprehensive Discharge Medication List: Ambulatory Orders Metoprolol Succinate 25 mg PO BID 09/09/18 Acetaminophen [Tylenol .Regular Strength -] 650 mg PO Q4H PRN tablet 09/13/18 Apixaban [Eliquis -] 5 mg PO BID tablet 09/13/18 Carbidopa/Levodopa *Cr* 25/100 [Sinemet *Cr* 25/100 -] 1 combo PO TID tablet.er 09/13/18 Insulin (Levemir) [Levemir Vial] 10 units SQ HS units 09/13/18 Meclizine HCl [Antivert -] 12.5 mg PO TID tablet 09/13/18 Methylprednisolone [Medrol -] 8 mg PO DAILY tablet 09/13/18 Metoprolol Tartrate [Lopressor -] 25 mg PO BID tablet 09/13/18 Naproxen [Naprosyn -] 500 mg PO BID tablet 09/13/18 Pantoprazole Sodium [Protonix -] 20 mg PO DAILY tablet.ec 09/13/18 Rosuvastatin [Crestor -] 20 mg PO HS tablet 09/13/18 Sitagliptin Phosphate [Januvia -] 50 mg PO DAILY@0700 tablet 09/13/18 levoFLOXacin [Levaquin -] 250 mg PO DAILY tablet 09/13/18
[2018-09-13] MEDS ORDERED: methylPREDNISolone ACET (DEPO) 80 MG/1 ML VIAL IAR ONE (14:45)
[2018-09-13] MEDS ORDERED: LIDOCAINE HCL 1%, 10 MG/ML (50 mL VIAL) SQ ONE (14:45)
[2018-09-13] MEDS: ACETAMINOPHEN 325 MG TABLET (FP) PO PRN (15:24)
[2018-09-13] MEDS ORDERED: INSULIN (LEVEMIR) 100 UNITS/ML UNITS SQ SCH (22:00)
[2018-09-13] MEDS ORDERED: ROSUVASTATIN CA 20 MG TABLET (FP) PO SCH (22:00)
[2018-09-13] MEDS: NAPROXEN 500 MG TABLET (FP) PO SCH (22:57)
[2018-09-14] MEDS ORDERED: INSULIN (LEVEMIR) 100 UNITS/ML UNITS SQ ONE (06:28)
[2018-09-14] MEDS ORDERED: INSULIN (NOVOLOG MIX 70/30) 100 UNITS/ML MDV SQ ONE (06:29)
[2018-09-14] MEDS: sitaGLIPtin PHOSPHATE 50 MG TABLET PO SCH (06:49)
[2018-09-14] MEDS: MECLIZINE HCL 12.5 MG TABLET PO SCH ×2 (06:50→14:00)
[2018-09-14] MEDS ORDERED: PT OWN MED DRAWER 7, Y5N ONE (09:23)
[2018-09-14] MEDS: METOPROLOL TARTRATE 25 MG TABLET (FP) PO SCH (09:31)
[2018-09-14] MEDS: NAPROXEN 500 MG TABLET (FP) PO SCH (09:31)
[2018-09-14] MEDS: APIXABAN 5 MG TABLET PO SCH (09:31)
[2018-09-14] MEDS ORDERED: methylPREDNISolone 8 MG TABLET PO SCH (10:00)
[2018-09-14] MEDS ORDERED: PANTOPRAZOLE 20 MG TABLET (FP) PO SCH (10:00)
--- NOTE | 2018-09-14 11:18 | PN ---
Progress Note (short form) - Note Progress Note: s: no cp sob palps;complains of knee pain, improving o: Vital Signs Period Temp Pulse Resp BP Sys/Starr Pulse Ox Last 24 Hr 97.4 F-99.4 F 91-106 20-22 120-145/59-66 98 nad no jvd irreg s1s2 no mrg cta bl nl eff aaox3 no le e/c/c abd nt nd pos bs no le e/c/c no jaundice diaphoresis Current Medications Acetaminophen (Tylenol -) 650 mg PO Q4H PRN PRN Reason: PAIN Last Admin: 09/13/18 15:24 Dose: 650 mg Apixaban (Eliquis -) 5 mg PO BID [facility] Last Admin: 09/14/18 09:31 Dose: 5 mg Carbidopa/Levodopa (Sinemet *Cr* 25/100 -) 1 combo PO TID [facility] Carbidopa/Levodopa (Sinemet *Cr* 25/100 -) 0.5 combo PO TID [facility] Stop: 09/17/18 22:01 Last Admin: 09/14/18 06:49 Dose: 0.5 combo Insulin Detemir (Levemir Vial) 10 units SQ [facility] Last Admin: 09/13/18 22:58 Dose: 10 units Levofloxacin (Levaquin -) 250 mg PO DAILY [facility] Stop: 09/15/18 10:01 Last Admin: 09/14/18 09:31 Dose: 250 mg Meclizine HCl (Antivert -) 12.5 mg PO TID [facility] Last Admin: 09/14/18 06:50 Dose: 12.5 mg Methylprednisolone (Medrol -) 8 mg PO DAILY [facility] Last Admin: 09/14/18 09:32 Dose: 8 mg Metoprolol Tartrate (Lopressor -) 25 mg PO BID [facility] Last Admin: 09/14/18 09:31 Dose: 25 mg Naproxen (Naprosyn -) 500 mg PO BID [facility] Last Admin: 09/14/18 09:31 Dose: 500 mg Pantoprazole Sodium (Protonix -) 20 mg PO DAILY [facility] Last Admin: 09/14/18 09:31 Dose: 20 mg Rosuvastatin Calcium (Crestor -) 20 mg PO HS [facility] Last Admin: 09/13/18 22:57 Dose: 20 mg Sitagliptin Phosphate (Januvia -) 50 mg PO DAILY@0700 [facility] Last Admin: 09/14/18 06:49 Dose: 50 mg echo 08/2018: septal wall hk, lvef 50, nl rv, mild mr, mild-mod tr, nl rvsp, mild ar carotids 08/2018: no sig stenosis a/p:83 f hx htn, dm , afib, cad s/p pci 2006, hld here s/p fall. fall: -mechanical fall, no suggestion of cardiac etiology -on meclizine for vertigo htn: -cont bb afib: -cont bb, rate controlled -cont ac cad s/p remote pci: -stable, no anginal sxs, preserved lvef -cont ac, bb. hld: -on crestor 20 at home.
[2018-09-14 12:53] VITALS: BP 122/60; PULSE 80; TEMP 98.4
== END 2018-09-14 14:11 | DRG 689 ==
LOC: SUPCPDRO 11:39 → JER 11:39 → JERBED 15:58 → J5S 09-10 11:07 → OBSVTOIN 09-12 09:59
PROVIDERS: ADMIT Family Medicine; ATTEND Family Medicine
DX: N39.0 Urinary tract infection, site not specified (principal); J18.9 Pneumonia, unspecified organism; I10 Essential (primary) hypertension; Z88.0 Allergy status to penicillin; R55 Syncope and collapse; Z79.01 Long term (current) use of anticoagulants; I48.2 Chronic atrial fibrillation; E66.9 Obesity, unspecified; E11.42 Type 2 diabetes mellitus with diabetic polyneuropathy; I25.10 Atherosclerotic heart disease of native coronary artery without angina pectoris; E78.5 Hyperlipidemia, unspecified; G20 Parkinson's disease; H83.09 Labyrinthitis, unspecified ear; Z95.5 Presence of coronary angioplasty implant and graft; Z68.30 Body mass index [BMI] 30.0-30.9, adult; Z79.4 Long term (current) use of insulin
CPT/HCPCS: 36415; 70450-TC; 70551-TC; 71045-TC-FY; 71046-TC-FY; 73560-TC-LT-FY; 80048; 80053; 80307; 81003; 81015; 82550; 82607; 82962; 83036; 83540; 83550; 83735; 84443; 84484; 85025; 85610; 86593; 87086; 87186; 93005; 93010; 93306-TC; 93880-TC; 97116-GP; 97162-GP; 99285-25; G0378

== ENCOUNTER 2022-09-26 14:33 | Observation (INO) | payer OTHER ==
[2022-09-26 15:00] VITALS: BMI 23.3
[2022-09-26] MEDS ORDERED: FAMOTIDINE 20 MG TABLET PO ONE (15:10)
[2022-09-26] MEDS ORDERED: SODIUM CHLORIDE 0.9% 500 ML INFUS.BAG IV ONE (15:10)
[2022-09-26] MEDS ORDERED: MAG HYDROX/AL HYDROX/SIMETH 30 ML UNIT-DOSE CUP PO ONE (15:10)
[2022-09-26] MEDS ORDERED: ONDANSETRON 4 MG/2 ML VIAL IVPUSH ONE (15:10)
[2022-09-26] MEDS ORDERED: METOCLOPRAMIDE HCL INJECTION 10 MG/2 ML VIAL IVPB ONE (15:13)
[2022-09-26] MEDS ORDERED: MAG HYDROX/AL HYDROX/SIMETH 30 ML UNIT-DOSE CUP ONE (16:06)
[2022-09-26] MEDS ORDERED: METOCLOPRAMIDE HCL 10 MG TABLET (FP) PO ONE (16:06)
[2022-09-26] MEDS ORDERED: FAMOTIDINE 20 MG TABLET ONE (16:06)
[2022-09-26 16:49] LABS: BASO % 0.3 % (0-2.0); EOS % 0.1 % (0-4.5); HEMOGLOBIN 13.2 GM/dL (10.7-15.3); LYMPH % 9.7 % (8-40); MCH 27.7 pg (25.7-33.7); MCHC 32.2 g/dl (32.0-36.0); MEAN CELL VOLUME 86.1 fl (80-96); MONO % 2.4 % (3.8-10.2); NEUT % 87.5 % (42.8-82.8); PLATELET COUNT 196 10^3/uL (134-434); RBC 4.76 M/mm3 (3.60-5.2); WHITE BLOOD COUNT 8.8 K/mm3 (4.0-10.0)
[2022-09-26 17:17] LABS: CALCIUM 9.8 mg/dL (8.5-10.1)
[2022-09-26 17:18] LABS: ALBUMIN 3.5 g/dl (3.4-5.0); BLOOD UREA NITROGEN 26.3 mg/dL (7-18)
[2022-09-26 17:21] LABS: CREATININE 1.2 mg/dL (0.55-1.3)
[2022-09-26 17:22] LABS: TOT PROT 7.1 g/dl (6.4-8.2)
[2022-09-26 17:23] LABS: BILIRUBIN,TOTAL 0.3 mg/dL (0.2-1)
[2022-09-26] MEDS ORDERED: MECLIZINE HCL 25 MG TABLET (FP) PO ONE (18:42)
[2022-09-26] MEDS ORDERED: MECLIZINE HCL 25 MG TABLET (FP) ONE (19:11)
[2022-09-26 20:37] LABS: EPI CELLS 8 /uL (0-25.1); HYALINE CASTS 0 /uL (0-3.1); PH,URINE 5.5 (5.0-8.0); URINE APPEARANCE CLEAR; URINE BACTERIA 2380 /uL (0-1359); URINE BILIRUBIN NEGATIVE (NEGATIVE); URINE COLOR YELLOW; URINE GLUCOSE (UA) NEGATIVE (NEGATIVE); URINE KETONE NEGATIVE (NEGATIVE); URINE LEUK ESTERASE 1+ (NEGATIVE); URINE NITRITE NEGATIVE (NEGATIVE); URINE PROTEIN TRACE (NEGATIVE); URINE RBC 24 /uL (0-23.9); URINE UROBILINOGEN 0.2 mg/dL (0.2-1.0); URINE WBC 67 /uL (0-25.8)
[2022-09-26] MEDS ORDERED: METOCLOPRAMIDE HCL INJECTION 10 MG/2 ML VIAL IVPUSH PRN (20:54)
[2022-09-26] MEDS ORDERED: SODIUM CHLORIDE 1,000 ML IV SCH (21:00)
[2022-09-26 22:19] LABS: CALCIUM 9.3 mg/dL (8.5-10.1)
[2022-09-26 22:20] LABS: MAGNESIUM 2.2 mg/dL (1.8-2.4)
[2022-09-26 22:24] LABS: PHOSPHOROUS 3.6 mg/dL (2.5-4.9)
[2022-09-27] MEDS: INSULIN SLIDING SCALE (NOVOLOG) 1 VIAL SQ SCH ×5 (00:39→21:24)
[2022-09-27] MEDS ORDERED: MECLIZINE HCL 12.5 MG TABLET PO PRN (07:57)
[2022-09-27 08:30] LABS: INR 1.17 (0.83-1.09); PROTHROMBIN TIME (PATIENT) 13.5 SEC (9.7-13.0)
[2022-09-27 08:31] LABS: ACTIVATED PTT 31.3 SECONDS (25.2-36.5)
[2022-09-27 08:37] LABS: CALCIUM 9.4 mg/dL (8.5-10.1)
[2022-09-27 08:38] LABS: BLOOD UREA NITROGEN 19.1 mg/dL (7-18)
[2022-09-27 08:40] LABS: BASO % 0.4 % (0-2.0); EOS % 0.8 % (0-4.5); HEMOGLOBIN 13.9 GM/dL (10.7-15.3); LYMPH % 20.5 % (8-40); MCH 27.9 pg (25.7-33.7); MCHC 32.3 g/dl (32.0-36.0); MEAN CELL VOLUME 86.1 fl (80-96); MEAN PLT VOLUME 9.2 fl (7.5-11.1); MONO % 8.5 % (3.8-10.2); NEUT % 69.8 % (42.8-82.8); PLATELET COUNT 182 10^3/uL (134-434); RBC 4.99 M/mm3 (3.60-5.2); RDW 16.4 % (11.6-15.6); WHITE BLOOD COUNT 11.2 K/mm3 (4.0-10.0)
[2022-09-27 08:41] LABS: CREATININE 1.1 mg/dL (0.55-1.3)
[2022-09-27] MEDS ORDERED: APIXABAN 5 MG TABLET ONE (09:20)
[2022-09-27] MEDS: METOPROLOL TARTRATE 25 MG TABLET (FP) PO SCH ×2 (09:20→21:23)
[2022-09-27] MEDS: APIXABAN 5 MG TABLET PO SCH ×2 (09:20→21:24)
[2022-09-27] MEDS ORDERED: METOPROLOL TARTRATE 25 MG TABLET (FP) ONE (09:20)
[2022-09-27] MEDS ORDERED: amLODIPine BESYLATE 5 MG TABLET (FP) PO ONE (12:22)
[2022-09-27] MEDS ORDERED: amLODIPine BESYLATE 5 MG TABLET (FP) ONE (13:58)
[2022-09-27] MEDS ORDERED: CARBIDOPA/LEVODOPA 25/100 TABLET (FP) ONE (13:58)
[2022-09-27] MEDS: ROSUVASTATIN CA 20 MG TABLET PO SCH (21:23)
[2022-09-28] MEDS: INSULIN SLIDING SCALE (NOVOLOG) 1 VIAL SQ SCH ×4 (06:46→21:32)
[2022-09-28 08:04] LABS: BASO % 0.5 % (0-2.0); EOS % 2.2 % (0-4.5); HEMATOCRIT 37.5 % (32.4-45.2); HEMOGLOBIN 12.3 GM/dL (10.7-15.3); LYMPH % 31.5 % (8-40); MCH 27.9 pg (25.7-33.7); MCHC 32.7 g/dl (32.0-36.0); MEAN CELL VOLUME 85.3 fl (80-96); MEAN PLT VOLUME 9.2 fl (7.5-11.1); MONO % 10.8 % (3.8-10.2); PLATELET COUNT 187 10^3/uL (134-434); WHITE BLOOD COUNT 7.6 K/mm3 (4.0-10.0)
[2022-09-28 08:10] LABS: CHLORIDE 111 mmol/L (98-107); SODIUM 144 mmol/L (136-145)
[2022-09-28 08:12] LABS: CALCIUM 8.7 mg/dL (8.5-10.1)
[2022-09-28 08:13] LABS: ANION GAP 6 MMOL/L (8-16); BLOOD UREA NITROGEN 28.1 mg/dL (7-18); CO2 27 mmol/L (21-32); GLUCOSE,RANDOM 146 mg/dL (74-106)
[2022-09-28 08:16] LABS: CHOLESTEROL 97 mg/dL (50-200); CREATININE 1.1 mg/dL (0.55-1.3); SGOT/AST 10 U/L (15-37)
[2022-09-28 08:17] LABS: BILIRUBIN,TOTAL 0.4 mg/dL (0.2-1); LDL CHOLESTEROL (ONLY SJRH) 49 mg/dL (5-100); TOT PROT 5.8 g/dl (6.4-8.2)
[2022-09-28 08:18] LABS: ALK PHOS 61 U/L (45-117)
[2022-09-28 08:19] LABS: HDL CHOLESTEROL 41 mg/dL (40-60)
[2022-09-28 08:36] LABS: ALBUMIN 2.7 g/dl (3.4-5.0); SGPT/ALT < 6 U/L (13-61)
[2022-09-28] MEDS: METOPROLOL TARTRATE 25 MG TABLET (FP) PO SCH ×2 (09:27→21:31)
[2022-09-28] MEDS: APIXABAN 5 MG TABLET PO SCH ×2 (09:27→21:31)
[2022-09-28] MEDS: ROSUVASTATIN CA 20 MG TABLET PO SCH (21:31)
[2022-09-29] MEDS: INSULIN SLIDING SCALE (NOVOLOG) 1 VIAL SQ SCH ×4 (06:18→22:18)
[2022-09-29] MEDS: METOPROLOL TARTRATE 25 MG TABLET (FP) PO SCH ×2 (09:27→22:18)
[2022-09-29] MEDS: APIXABAN 5 MG TABLET PO SCH ×2 (09:28→22:17)
[2022-09-29 10:29] LABS: BASO % 0.4 % (0-2.0); EOS % 2.1 % (0-4.5); HEMATOCRIT 39.1 % (32.4-45.2); HEMOGLOBIN 12.8 GM/dL (10.7-15.3); MCH 28.2 pg (25.7-33.7); MCHC 32.8 g/dl (32.0-36.0); MEAN CELL VOLUME 86.1 fl (80-96); MEAN PLT VOLUME 9.2 fl (7.5-11.1); MONO % 7.4 % (3.8-10.2); NEUT % 70.1 % (42.8-82.8); PLATELET COUNT 183 10^3/uL (134-434); RBC 4.54 M/mm3 (3.60-5.2); RDW 15.9 % (11.6-15.6); WHITE BLOOD COUNT 9.5 K/mm3 (4.0-10.0)
[2022-09-29 10:42] LABS: CHLORIDE 110 mmol/L (98-107); SODIUM 140 mmol/L (136-145)
[2022-09-29 10:44] LABS: CALCIUM 9.3 mg/dL (8.5-10.1)
[2022-09-29 10:45] LABS: ALBUMIN 2.9 g/dl (3.4-5.0); ANION GAP 2 MMOL/L (8-16); CO2 28 mmol/L (21-32); GLUCOSE,RANDOM 183 mg/dL (74-106)
[2022-09-29 10:48] LABS: CREATININE 1.1 mg/dL (0.55-1.3); SGOT/AST 11 U/L (15-37); SGPT/ALT < 6 U/L (13-61)
[2022-09-29 10:49] LABS: BILIRUBIN,TOTAL 0.4 mg/dL (0.2-1); TOT PROT 6.4 g/dl (6.4-8.2)
[2022-09-29 10:51] LABS: ALK PHOS 65 U/L (45-117)
[2022-09-29 11:28] LABS: LIPASE 148 U/L (73-393)
[2022-09-29 15:57] VITALS: RESP 18
[2022-09-29] MEDS: ROSUVASTATIN CA 20 MG TABLET PO SCH (22:17)
[2022-09-30 00:32] VITALS: BP 155/68; PULSE 113; TEMP 97.7
[2022-09-30] MEDS ORDERED: FAMOTIDINE 20 MG/50 ML IVPB 20 MG/50 ML MG IVPB SCH (07:00)
== END 2022-09-30 02:30 ==
LOC: JER 14:33 → JERBED 18:33 → J4S 09-27 16:59
PROVIDERS: ADMIT Internal Medicine; ATTEND Internal Medicine
PROC: 3E03329 Introduction of Other Anti-infective into Peripheral Vein, Percutaneous Approach (ICD-10-PCS; principal; 2022-09-26)
PROC: 3E013VG Introduction of Insulin into Subcutaneous Tissue, Percutaneous Approach (ICD-10-PCS; 2022-09-26)
PROC: 3E033GC Introduction of Other Therapeutic Substance into Peripheral Vein, Percutaneous Approach (ICD-10-PCS; 2022-09-26)
PROC: 3E0337Z Introduction of Electrolytic and Water Balance Substance into Peripheral Vein, Percutaneous Approach (ICD-10-PCS; 2022-09-26)
DX: I48.91 Unspecified atrial fibrillation (principal); R55 Syncope and collapse; Z88.0 Allergy status to penicillin; R42 Dizziness and giddiness; E11.9 Type 2 diabetes mellitus without complications; I10 Essential (primary) hypertension; N39.0 Urinary tract infection, site not specified; I25.10 Atherosclerotic heart disease of native coronary artery without angina pectoris; I11.9 Hypertensive heart disease without heart failure; G20 Parkinson's disease; Z86.73 Personal history of transient ischemic attack (TIA), and cerebral infarction without residual deficits
CPT/HCPCS: 0241U-QW; 36415; 70450-TC; 70551-TC; 71046-TC-FY; 80048; 80053; 80061; 81003; 82962; 83036; 83690; 83735; 84100; 84443; 84484; 85025; 85610; 85730; 87086; 87186; 93005; 93010; 93306-TC; 93880-TC; 96361; 96365; 96372; 96375; 97116-GP; 97161-GP; 99285-25; G0378

== ENCOUNTER 2023-03-17 13:55 | Emergency (ER) | payer OTHER ==
[2023-03-17 14:10] VITALS: TEMP 98.4; BMI 28.9
[2023-03-17] MEDS ORDERED: DIPHTH,PERTUSS(ACELL),TET 0.5 ML DISP.SYRIN IM ONE ×2 (15:30→17:24)
[2023-03-17 22:43] VITALS: BP 160/73; PULSE 82; RESP 13
== END 2023-03-18 00:06 | disposition home or self-care (01) ==
LOC: JER 13:55
PROC: 3E0234Z Introduction of Serum, Toxoid and Vaccine into Muscle, Percutaneous Approach (ICD-10-PCS; principal; 2023-03-17)
DX: S30.810A Abrasion of lower back and pelvis, initial encounter (principal); S70.211A Abrasion, right hip, initial encounter; M25.551 Pain in right hip; W01.0XXA Fall on same level from slipping, tripping and stumbling without subsequent striking against object, initial encounter; Y93.01 Activity, walking, marching and hiking
CPT/HCPCS: 70450-TC; 72170-TC-FY; 73502-TC-RT-FY; 82962; 90471; 90715; 93005; 93010; 99284-25

== ENCOUNTER 2023-09-08 13:03 | Emergency (ER) | payer OTHER ==
[2023-09-08 13:16] VITALS: BMI 30.5
[2023-09-08] MEDS ORDERED: LIDOCAINE 4% PATCH TP ONE (16:20)
[2023-09-08] MEDS: LIDOCAINE 5% TOPICAL PATCH TP ONE (16:47)
[2023-09-08 18:56] VITALS: BP 110/68; PULSE 74; RESP 19; TEMP 97.9
[2023-09-08] MEDS ORDERED: LIDOCAINE PATCH REMOVAL MC SCH (22:00)
== END 2023-09-08 18:56 | disposition home or self-care (01) ==
LOC: JER 13:03
DX: R07.81 Pleurodynia (principal); W01.198A Fall on same level from slipping, tripping and stumbling with subsequent striking against other object, initial encounter
CPT/HCPCS: 70450-TC; 71111-TC-FY; 72125-TC; 99285-25